=== PATIENT | male | born 1970 | race Caucasian/White ===

== ENCOUNTER → 2021-08-10 | Outpatient (CLI) | payer OTHER ==
--- NOTE | 2021-08-10 14:53 | 2DMMODE ---
[place] [address] 2 D/M-MODE ECHOCARDIOGRAM Name: OVI HARRIS Room: [facility]#: [id number] Admission: 08/10/21 Attend Phys: Stephen Barajas, Discharge: Date of : 74 Date of Service: 08/10/21 1453 Report #: [id number] THIS REPORT FOR: cc: Chato Slade Vincent R. DO Holkins,Jeffy Henderson MD [facility] ~ APPROVED REPORT Study performed: 08/10/2021 15:11:15 EXAM: Comprehensive 2D, Doppler, and color-flow Echocardiogram Patient Location: Out-Patient BSA: 2.14 HR: 47 bpm BP: 122/72 mmHg Other Information Study Quality: Good Indications Palpitations 2D Dimensions IVSd: 10.24 (7-11mm) LVOT Diam: 21.81 (18-24mm) LVDd: 50.05 mm PWd: 9.77 (7-11mm) Ascending Ao: 29.41 (22-36mm) LVDs: 27.31 (25-40mm) Aortic Root: 36.20 mm Volumes Left Atrial Volume (Systole) LA ESV Index: 16.60 mL/m2 Aortic Valve AoV Peak John.: 1.31 m/s AO Peak Gr.: 6.84 mmHg LVOT Max P.72 mmHg AO Mean Gr.: 3.38 mmHg LVOT Mean P.82 mmHg LVOT Max V: 0.96 m/s AO V2 VTI: 23.92 cm LVOT Mean V: 0.62 m/s MIGUEL ÁNGEL (VTI): 3.36 cm2 LVOT V1 VTI: 21.54 cm Mitral Valve E/A Ratio: 1.18 [place] [address] 2 D/M-MODE ECHOCARDIOGRAM Name: OVI HARRIS Room: [facility]#: [id number] Admission: 08/10/21 Attend Phys: Stephen Barajas, Discharge: Date of : 74 Date of Service: 08/10/21 1453 Report #: [id number] MV Decel. Time: 203.05 ms MV E Max John.: 0.66 m/s MV PHT: 58.88 ms MVA (PHT): 3.74 cm2 TDI E/Lateral E': 6.00 E/Medial E': 8.25 Medial E' John.: 0.08 m/s Lateral E' John.: 0.11 m/s Pulmonary Valve PV Peak John.: 0.83 m/s PV Peak Gr.: 2.74 mmHg Tricuspid Valve RAP Estimate: 5.00 mmHg TR Peak Gr.: 24.38 mmHg RVSP: 25.38 mmHg PA Pressure: 25.38 mmHg Left Ventricle The left ventricle is normal size. There is normal LV segmental wall motion. There is normal left ventricular wall thickness. Left ventricular systolic function is normal. The left ventricular ejection fraction is within the normal range. LVEF is 55-60%. The left ventricular diastolic function is normal. Right Ventricle The right ventricle is normal size. The right ventricular systolic function is normal. Atria The left atrium size is normal. The right atrium size is normal. Aortic Valve The aortic valve is normal in structure. No aortic regurgitation is present. There is no aortic valvular stenosis. Mitral Valve The mitral valve is normal in structure. Trace mitral regurgitation. No evidence of mitral valve stenosis. Tricuspid Valve The tricuspid valve is normal in structure. Mild tricuspid regurgitation[place] [address] 2 D/M-MODE ECHOCARDIOGRAM Name: OVI HARRIS Room: [facility]#: [id number] Admission: 08/10/21 Attend Phys: Stephen Barajas, Discharge: Date of : 74 Date of Service: 08/10/21 1453 Report #: [id number] The pulmonary valve is normal in structure. Trace pulmonic regurgitation. Great Vessels The aortic root is normal in size. IVC is normal in size and collapses >50% with inspiration. Pericardium There is no pericardial effusion. <Conclusion> The left ventricle is normal size. There is normal left ventricular wall thickness. Left ventricular systolic function is normal. The left ventricular ejection fraction is within the normal range. LVEF is 55-60%. The left ventricular diastolic function is normal. The right ventricle is normal size. The left atrium size is normal. The aortic valve is normal in structure. The mitral valve is normal in structure. The tricuspid valve is normal in structure. Mild tricuspid regurgitation. IVC is normal in size and collapses >50% with inspiration. There is no pericardial effusion. There is normal LV segmental wall motion. <ELECTRONICALLY SIGNED> By: Jeffy Jacobo MD, FACC 08/10/21 1453 1453 1453 Jeffy Jacobo MD, FACC /INF
--- NOTE | 2021-08-10 15:53 | EXE ---
[place] [address] STRESS ECHOCARDIOGRAM Name: OVI HARRIS Room: [facility]#: [id number] Admission: 08/10/21 Attend Phys: Stephen Barajas, Discharge: Date of : 74 Date of Service: 08/10/21 1552 Report #: [id number] THIS REPORT FOR: cc: Chato Slade Vincent R. DO Holkins,Jeffy Henderson MD [facility] ~ APPROVED REPORT Study performed: 08/10/2021 15:47:21 Exam: Stress Echocardiogram Indication: Palpitations Patient Location: Out-Patient Stress Nurse: Hermelinda Delgado RN Supervising Physician: Jeffy Jacobo MD Ht: 5 ft 11 in HR: 66 bpm BP: 113/79 mmHg Medical History Cardiac Risk Factors: Hyperlipidemia, Tobacco History (Current/Recent), FHX of CAD Procedure The patient underwent an Exercise Stress Test using the Ayo Protocol. Blood pressure, heart rate, and EKG were monitored. An Echocardiogram was performed by automotive refinish technician in four stages in quad fashion. At peak stress, four selected images were obtained and placed side by side with resting images for comparison. Stress Test Details Stress Test: Exercise stress testing was performed using a Ayo protocol. HR Resting HR: 66 bpm Max Heart Rate (APMHR): 172 bpm Max HR Achieved: 154 bpm Target HR (85% APMHR): 146 bpm % of APMHR: 89 Recovery HR: 80 bpm HR response to stress: Normal HR response to stress BP Resting BP: 113/79 mmHg Max BP: 191/83 mmHg Recovery BP: 128/79 [place] [address] STRESS ECHOCARDIOGRAM Name: OVI HARRIS Room: [facility]#: [id number] Admission: 08/10/21 Attend Phys: Stephen Barajas, Discharge: Date of : 74 Date of Service: 08/10/21 1552 Report #: [id number] BP response to stress: Normal blood pressure response to stress. ECG Resting ECG: Sinus rhythm mild right axis deviation Minor IVCD of the right type Stress ECG: No ischemic ST-T changes Arrhythmia: No arrhythmias noted Recovery ECG: No ischemic ST-T changes Recovery Arrhythmia: No arrhythmias noted Clinical Reason for Termination: Maximal effort, Completed protocol Exercise duration: 9 min 57 sec Highest Stage Achieved: Stage 4: 4.2 mph at 16% grade. Exercise capacity: 11.16 METs Pre-Stress Echo The resting Echocardiogram showed normal left ventricular contractility with an estimated Ejection Fraction of about 55-60%. Normal wall motion in all segments on baseline images. Post-Stress Echo The stress Echocardiogram showed normal left ventricular contractility with an estimated Ejection Fraction of about >70%. Normal augmentation of wall motion in all segments on post stress images. Conclusion Clinical Response: Non-ischemic Exercise Capacity: Average Stress ECG Response: Non-ischemic Stress Echo Images: Non-ischemic Other Information Study Quality: Good <ELECTRONICALLY SIGNED> By: Jeffy Jacobo MD, [facility] 08/10/21 155 155 155 Jeffy Jacobo MD, FACC /INF
== END ==
LOC: M.CRD 07-06 10:03
PROVIDERS: ATTEND Internal Medicine Cardiovascular Disease
DX: I07.1 Rheumatic tricuspid insufficiency (principal); R00.2 Palpitations